=== PATIENT | male | born 1990 | race Caucasian/White ===

== ENCOUNTER 2022-05-27 23:39 | Emergency (ER) | payer MEDICAID ==
[~2022-05-27] VITALS: Ht 167.6 cm; Wt 73.0 kg
[2022-05-28 00:04] VITALS: BP 132/70
[2022-05-28 00:29] LABS: BASOPHILS % 0.6 % (0.0-2.0); EOSINOPHILS % 1.3 % (0.0-5.0); HEMATOCRIT. 46.2 % (42.0-52.0); HEMOGLOBIN. 15.5 g/dL (14.0-18.0); LYMPHOCYTES % 42.3 % (20.0-50.0); MEAN CORPUSCULAR HEMOGLOBIN 29.5 pg (28.0-32.0); MEAN CORPUSCULAR VOLUME 87.7 fL (80.0-94.0); MEAN PLATELET VOLUME 7.6 fl (7.4-10.4); MONOCYTES % 9.8 % (2.0-8.0); PLATELET 424 x1000/uL (130-400); RED BLOOD CELL COUNT 5.26 mill/uL (4.7-6.1); RED CELL DISTRIBUTION WIDTH 13.2 % (11.6-14.6)
[2022-05-28 00:34] LABS: CHLORIDE 106 mEq/L (98-107)
[2022-05-28] MEDS ORDERED: ONDANSETRON HCL 4MG/2ML INJ IV ONE (03:00)
[2022-05-28] MEDS ORDERED: SODIUM CHLORIDE 0.9% 1,000 ML IV ONE (03:00)
[2022-05-28] MEDS ORDERED: PANTOPRAZOLE SODIUM 40 MG/VIAL IV ONE (03:00)
[2022-05-28 03:12] LABS: CLARITY URINE CLEAR (CLEAR); COLOR URINE YELLOW (YELLOW); KETONES URINE 1+ (NEGATIVE); LEUKOCYTE ESTERASE URINE NEGATIVE (NEGATIVE); NITRITE URINE NEGATIVE (NEGATIVE); OCCULT BLOOD URINE NEGATIVE (NEGATIVE); PH URINE 5.5 (4.5-8.0); PROTEIN URINE NEGATIVE (NEGATIVE); SPECIFIC GRAVITY URINE 1.017 (1.005-1.030)
[2022-05-28] MEDS ORDERED: PANT20TA17 MT (04:31)
== END 2022-05-28 04:51 | disposition home or self-care (01) ==
LOC: ER 23:56
DX: R11.2 Nausea with vomiting, unspecified (principal); J45.909 Unspecified asthma, uncomplicated
CPT/HCPCS: 36415; 71045; 80053; 81003; 83690; 85025; 85610; 85730; 86850; 86900; 86901; 99284; C9113; J2405; Z7610

== ENCOUNTER 2022-07-09 19:53 | Emergency (ER) | payer MEDICAID ==
[~2022-07-09] VITALS: Ht 162.6 cm; Wt 75.0 kg
[~2022-07-09 19:53] MED LIST: FOLI-43 MT; PANT20TA17 MT; THIA50TA12 MT
[2022-07-09] MEDS ORDERED: ONDANSETRON HCL 4MG/2ML INJ IV ONE (20:15)
[2022-07-09] MEDS ORDERED: SODIUM CHLORIDE 0.9% 1,000 ML IV ONE (20:15)
[2022-07-09] MEDS ORDERED: ONDANSETRON HCL 4MG/2ML INJ IV NR (20:15)
[2022-07-09] MEDS ORDERED: VISCOUS LIDOCAINE 2% 15 ML UDC MM NR (20:30)
[2022-07-09] MEDS ORDERED: VISCOUS LIDOCAINE 2% 15 ML UDC MM ONE (20:30)
[2022-07-09 20:35] LABS: BASOPHILS % 1.3 % (0.0-2.0); EOSINOPHILS % 1.4 % (0.0-5.0); HEMATOCRIT. 45.6 % (42.0-52.0); HEMOGLOBIN. 15.3 g/dL (14.0-18.0); LYMPHOCYTES % 41.4 % (20.0-50.0); MEAN CORPUSCULAR HEMOGLOBIN 29.5 pg (28.0-32.0); MEAN PLATELET VOLUME 7.6 fl (7.4-10.4); MONOCYTES % 9.7 % (2.0-8.0); NEUTROPHILS % 46.2 % (40.0-76.0); PLATELET 300 x1000/uL (130-400); RED BLOOD CELL COUNT 5.18 mill/uL (4.7-6.1); RED CELL DISTRIBUTION WIDTH 13.5 % (11.6-14.6)
[2022-07-09 20:40] LABS: CHLORIDE 104 mEq/L (98-107)
[2022-07-09 20:43] LABS: PROTHROMBIN TIME 11.1 sec (9.6-11.0)
[2022-07-09 21:22] LABS: CLARITY URINE CLEAR (CLEAR); COLOR URINE YELLOW (YELLOW); KETONES URINE NEGATIVE (NEGATIVE); LEUKOCYTE ESTERASE URINE NEGATIVE (NEGATIVE); NITRITE URINE NEGATIVE (NEGATIVE); OCCULT BLOOD URINE NEGATIVE (NEGATIVE); PROTEIN URINE NEGATIVE (NEGATIVE); SPECIFIC GRAVITY URINE 1.003 (1.005-1.030); UROBILINOGEN URINE 0.2 E.U./dL (0.2-1.0)
[2022-07-09 21:36] LABS: ETHANOL BLOOD 310 mg/dL
[2022-07-09 21:40] LABS: *AMPHETAMINES SCREEN URINE NEGATIVE (NEGATIVE); *BARBITURATES SCREEN URINE NEGATIVE (NEGATIVE); *BENZODIAZEPINES SCREEN URINE NEGATIVE (NEGATIVE); *COCAINE SCREEN URINE NEGATIVE (NEGATIVE); CANNABINOID URINE SCREEN PRESUMTIVE POSITIVE (NEGATIVE); METHADONE URINE SCREEN NEGATIVE (NEGATIVE); OPIATES URINE SCREEN NEGATIVE (NEGATIVE); PHENCYCLIDINE URINE SCREEN NEGATIVE (NEGATIVE)
[2022-07-10] MEDS ORDERED: ONDA4TAB50 MT (00:28)
[2022-07-10] MEDS ORDERED: MAG355OR21 MT (00:28)
[2022-07-10] MEDS ORDERED: IBUP-2029 MT (00:28)
[2022-07-10 00:30] VITALS: BP 128/72
[2022-07-10] MEDS ORDERED: L25 GT (16:39)
[2022-07-10] MEDS ORDERED: FAMO40TA70 MT (16:39)
== END 2022-07-10 00:41 | disposition home or self-care (01) ==
LOC: ER 20:08
DX: F10.129 Alcohol abuse with intoxication, unspecified (principal); N13.4 Hydroureter; R10.13 Epigastric pain; R11.2 Nausea with vomiting, unspecified; R19.7 Diarrhea, unspecified; J45.909 Unspecified asthma, uncomplicated; Z91.013 Allergy to seafood; Z79.899 Other long term (current) drug therapy; Y90.8 Blood alcohol level of 240 mg/100 ml or more
CPT/HCPCS: 36415; 74176; 76705; 80053; 80305; 80320; 81003; 83605; 83690; 85025; 85610; 86850; 86900; 86901; 96361; 96374; 99285; J2405; J7030; Z7610; G0480

== ENCOUNTER 2022-07-10 12:23 | Emergency (ER) | payer MEDICAID ==
[~2022-07-10] VITALS: Ht 165.1 cm; Wt 68.0 kg
[~2022-07-10 12:23] MED LIST changes: +IBUP-2029 MT; +MAG355OR21 MT; +ONDA4TAB50 MT
[2022-07-10] MEDS ORDERED: PANTOPRAZOLE SODIUM 40 MG/VIAL IV STA (12:55)
[2022-07-10] MEDS ORDERED: ONDANSETRON HCL 4MG/2ML INJ IV ONE (13:00)
[2022-07-10 13:45] LABS: BASOPHILS % 0.4 % (0.0-2.0); EOSINOPHILS % 0.5 % (0.0-5.0); HEMATOCRIT. 42.5 % (42.0-52.0); HEMOGLOBIN. 14.3 g/dL (14.0-18.0); LYMPHOCYTES % 19.1 % (20.0-50.0); MEAN CORPUSCULAR HEMOGLOBIN 29.6 pg (28.0-32.0); MEAN CORPUSCULAR VOLUME 88.2 fL (80.0-94.0); MEAN PLATELET VOLUME 7.7 fl (7.4-10.4); MONOCYTES % 11.6 % (2.0-8.0); NEUTROPHILS % 68.4 % (40.0-76.0); PLATELET 264 x1000/uL (130-400); RED BLOOD CELL COUNT 4.82 mill/uL (4.7-6.1); RED CELL DISTRIBUTION WIDTH 13.5 % (11.6-14.6)
[2022-07-10 13:52] LABS: CHLORIDE 104 mEq/L (98-107)
[2022-07-10 14:00] LABS: ETHANOL BLOOD 39 mg/dL
[2022-07-10 15:32] LABS: CLARITY URINE CLEAR (CLEAR); COLOR URINE YELLOW (YELLOW); KETONES URINE NEGATIVE (NEGATIVE); LEUKOCYTE ESTERASE URINE NEGATIVE (NEGATIVE); NITRITE URINE NEGATIVE (NEGATIVE); OCCULT BLOOD URINE NEGATIVE (NEGATIVE); PROTEIN URINE NEGATIVE (NEGATIVE); SPECIFIC GRAVITY URINE 1.011 (1.005-1.030); UROBILINOGEN URINE 0.2 E.U./dL (0.2-1.0)
[2022-07-10 15:45] LABS: *AMPHETAMINES SCREEN URINE NEGATIVE (NEGATIVE); *BARBITURATES SCREEN URINE NEGATIVE (NEGATIVE); *BENZODIAZEPINES SCREEN URINE NEGATIVE (NEGATIVE); *COCAINE SCREEN URINE NEGATIVE (NEGATIVE); CANNABINOID URINE SCREEN PRESUMTIVE POSITIVE (NEGATIVE); METHADONE URINE SCREEN NEGATIVE (NEGATIVE); OPIATES URINE SCREEN NEGATIVE (NEGATIVE); PHENCYCLIDINE URINE SCREEN NEGATIVE (NEGATIVE)
[2022-07-10 16:14] LABS: HEMATOCRIT 42.4 % (42.0-52.0); HEMOGLOBIN 14.1 g/dL (14.0-18.0); MEAN CORPUSCULAR HEMOGLOBIN 29.3 pg (28.0-32.0); MEAN CORPUSCULAR VOLUME 88.1 fL (80.0-94.0); PLATELET 271 x1000/uL (130-400); RED BLOOD CELL COUNT 4.82 mill/uL (4.7-6.1)
[2022-07-10] MEDS ORDERED: FAMO40TA70 MT (16:39)
[2022-07-10] MEDS ORDERED: L25 GT (16:39)
[2022-07-10 16:59] VITALS: BP 139/68
== END 2022-07-10 17:40 | disposition home or self-care (01) ==
LOC: ER 13:15
DX: F10.10 Alcohol abuse, uncomplicated (principal); K29.20 Alcoholic gastritis without bleeding; Y90.1 Blood alcohol level of 20-39 mg/100 ml; J45.909 Unspecified asthma, uncomplicated
CPT/HCPCS: 36415; 80053; 80305; 80320; 81003; 82270; 83690; 85025; 85027; 86850; 86900; 86901; 93005; 96374; 96375; 99284; C9113; J2405; Z7610; G0480

== ENCOUNTER 2022-07-20 11:03 | Emergency (ER) | payer MEDICAID ==
[~2022-07-20] VITALS: Ht 162.6 cm; Wt 73.0 kg
[~2022-07-20 11:03] MED LIST changes: +FAMO40TA70 MT; +L25 GT
[2022-07-20] MEDS ORDERED: IBUPROFEN 600MG TABLET PO ONE (12:30)
[2022-07-20] MEDS ORDERED: ALBUTEROL (0.083%) 2.5MG/3ML NEB HHN ONE (12:30)
[2022-07-20] MEDS ORDERED: GUAIFENESIN 600MG ER TABLET PO ONE (12:30)
[2022-07-20] MEDS ORDERED: ALBU6.7H3 INH (13:10)
[2022-07-20] MEDS ORDERED: GUAI600T26 MT (13:10)
[2022-07-20] MEDS ORDERED: IBUP-2029 MT (13:10)
[2022-07-20 13:39] VITALS: BP 136/96
== END 2022-07-20 14:45 | disposition home or self-care (01) ==
LOC: ER 11:03
DX: J42 Unspecified chronic bronchitis (principal); K70.30 Alcoholic cirrhosis of liver without ascites; J45.909 Unspecified asthma, uncomplicated; Z00.00 Encounter for general adult medical examination without abnormal findings; Z91.013 Allergy to seafood; Z79.899 Other long term (current) drug therapy
CPT/HCPCS: 71045; 94640; 99283; Z7610

== ENCOUNTER 2022-08-17 10:43 | Emergency (ER) | payer MEDICAID ==
[~2022-08-17] VITALS: Ht 165.1 cm; Wt 72.0 kg
[~2022-08-17 10:43] MED LIST changes: +ALBU6.7H3 INH; +GUAI600T26 MT
[2022-08-17 10:46] VITALS: O2SAT 98
[2022-08-17] MEDS ORDERED: ONDANSETRON HCL 4MG/2ML INJ IV STA (10:53)
[2022-08-17] MEDS ORDERED: MAGNESIUM/ALUMINUM HYDROXIDE/SIMETHICONE 30ML UDC PO STA (10:53)
[2022-08-17] MEDS ORDERED: SODIUM CHLORIDE 0.9% 1,000 ML IV ONE (11:00)
[2022-08-17 11:25] LABS: BASOPHILS % 0.6 % (0.0-2.0); EOSINOPHILS % 0.3 % (0.0-5.0); HEMATOCRIT. 45.2 % (42.0-52.0); HEMOGLOBIN. 15.3 g/dL (14.0-18.0); LYMPHOCYTES % 23.9 % (20.0-50.0); MEAN CORPUSCULAR HEMOGLOBIN 29.6 pg (28.0-32.0); MEAN CORPUSCULAR VOLUME 87.6 fL (80.0-94.0); MEAN PLATELET VOLUME 7.9 fl (7.4-10.4); MONOCYTES % 10.9 % (2.0-8.0); NEUTROPHILS % 64.3 % (40.0-76.0); PLATELET 363 x1000/uL (130-400); RED BLOOD CELL COUNT 5.16 mill/uL (4.7-6.1); RED CELL DISTRIBUTION WIDTH 13.8 % (11.6-14.6)
[2022-08-17 11:35] LABS: CHLORIDE 103 mEq/L (98-107)
[2022-08-17 11:39] LABS: PROTHROMBIN TIME 11.1 sec (9.6-11.0)
[2022-08-17 11:42] LABS: ETHANOL BLOOD 35 mg/dL (-10)
[2022-08-17 12:10] VITALS: TEMP 98.1
[2022-08-17] MEDS ORDERED: OMEP40CA20 MT (13:05)
[2022-08-17 14:20] VITALS: BP 128/81; PULSE 78; RESP 14
== END 2022-08-17 14:20 | disposition home or self-care (01) ==
LOC: ER 11:04
DX: R10.33 Periumbilical pain (principal); R11.2 Nausea with vomiting, unspecified; F10.229 Alcohol dependence with intoxication, unspecified; J45.909 Unspecified asthma, uncomplicated; Y90.0 Blood alcohol level of less than 20 mg/100 ml
CPT/HCPCS: 80053; 80320; 83690; 85025; 85610; 36415; 74176; 93005; 96361; 96374; 99285; J2405; J7030; G0480

== ENCOUNTER 2022-08-24 20:33 | Emergency (ER) | payer MEDICAID ==
[~2022-08-24] VITALS: Ht 165.1 cm; Wt 61.0 kg
[~2022-08-24 20:33] MED LIST changes: +OMEP40CA20 MT
[2022-08-24 20:41] VITALS: O2SAT 98
[2022-08-24 23:42] LABS: BASOPHILS % 0.5 % (0.0-2.0); EOSINOPHILS % 1.3 % (0.0-5.0); HEMATOCRIT. 45.5 % (42.0-52.0); HEMOGLOBIN. 15.2 g/dL (14.0-18.0); MEAN CORPUSCULAR HEMOGLOBIN 29.7 pg (28.0-32.0); MEAN PLATELET VOLUME 7.8 fl (7.4-10.4); MONOCYTES % 10.5 % (2.0-8.0); NEUTROPHILS % 52.7 % (40.0-76.0); PLATELET 292 x1000/uL (130-400); RED BLOOD CELL COUNT 5.12 mill/uL (4.7-6.1); RED CELL DISTRIBUTION WIDTH 14.1 % (11.6-14.6)
[2022-08-24 23:50] LABS: CHLORIDE 108 mEq/L (98-107)
[2022-08-25] MEDS ORDERED: SODIUM CHLORIDE 0.9% 1,000 ML IV ONE (00:30)
[2022-08-25] MEDS ORDERED: MAGNESIUM/ALUMINUM HYDROXIDE/SIMETHICONE 30ML UDC PO NR (00:30)
[2022-08-25] MEDS ORDERED: ONDANSETRON HCL 4MG/2ML INJ IV NR (00:30)
[2022-08-25] MEDS ORDERED: FAMOTIDINE 20MG/2ML VIAL IV NR (00:30)
[2022-08-25] MEDS ORDERED: PANT20TA17 MT (02:25)
[2022-08-25 02:44] VITALS: BP 136/82; PULSE 78; RESP 16; TEMP 98.3
[2022-08-28] MEDS ORDERED: VITAMIN D (13:44)
== END 2022-08-25 02:44 | disposition home or self-care (01) ==
LOC: ER 20:33
DX: R10.13 Epigastric pain (principal); R11.2 Nausea with vomiting, unspecified; F10.229 Alcohol dependence with intoxication, unspecified; J45.909 Unspecified asthma, uncomplicated; Y90.0 Blood alcohol level of less than 20 mg/100 ml
CPT/HCPCS: 80053; 83605; 83690; 85025; 36415; 99285; 76705; 96361; 96374; 96375; J3490; J2405; Z7610

== ENCOUNTER 2022-09-01 13:20 | Emergency (ER) | payer MEDICAID ==
[~2022-09-01] VITALS: Ht 165.1 cm; Wt 73.0 kg
[~2022-09-01 13:20] MED LIST changes: +VITAMIN D
[2022-09-01 13:30] VITALS: BP 121/78; RESP 16; TEMP 98.7; O2SAT 100
[2022-09-01 13:34] VITALS: PULSE 82
[2022-09-01 14:02] LABS: BASOPHILS % 0.9 % (0.0-2.0); EOSINOPHILS % 2.5 % (0.0-5.0); HEMATOCRIT. 44.4 % (42.0-52.0); HEMOGLOBIN. 14.8 g/dL (14.0-18.0); LYMPHOCYTES % 35.5 % (20.0-50.0); MEAN CORPUSCULAR HEMOGLOBIN 29.4 pg (28.0-32.0); MEAN CORPUSCULAR VOLUME 88.1 fL (80.0-94.0); MEAN PLATELET VOLUME 7.6 fl (7.4-10.4); NEUTROPHILS % 49.1 % (40.0-76.0); PLATELET 241 x1000/uL (130-400); RED BLOOD CELL COUNT 5.04 mill/uL (4.7-6.1); RED CELL DISTRIBUTION WIDTH 13.6 % (11.6-14.6)
[2022-09-01 14:09] LABS: CHLORIDE 104 mEq/L (98-107)
[2022-09-01] MEDS ORDERED: SODIUM CHLORIDE 0.9% 1,000 ML IV SCH (19:00)
[2022-09-01] MEDS ORDERED: NALOXONE HCL 0.4MG/ML VIAL IV PRN (19:00)
[2022-09-01] MEDS ORDERED: MORPHINE SULFATE 2 MG/ML CPJ (NOT FOR IM USE) IV PRN (19:00)
[2022-09-01] MEDS ORDERED: SUCRALFATE 1 G/10 ML UDC PO SCH (21:00)
[2022-09-01] MEDS ORDERED: CHLORDIAZEPOXIDE 25MG CAPSULE PO SCH (22:00)
[2022-09-02] MEDS ORDERED: PANTOPRAZOLE SODIUM 40 MG/VIAL IV SCH (09:00)
== END 2022-09-01 18:24 | disposition left against medical advice (07) ==
LOC: ER 13:20
DX: Z53.21 Procedure and treatment not carried out due to patient leaving prior to being seen by health care provider (principal); I49.9 Cardiac arrhythmia, unspecified
CPT/HCPCS: 36415; 76700; 80053; 84484; 85025; 93005; 99281

== ENCOUNTER 2022-09-29 18:02 | Emergency (ER) | payer MEDICAID ==
[~2022-09-29] VITALS: Ht 167.6 cm; Wt 72.0 kg
[~2022-09-29 18:02] MED LIST changes: -IBUP-2029 MT; -L25 GT; +MAG-55 MT
[2022-09-29 18:26] VITALS: O2SAT 100
[2022-09-29 20:54] LABS: BASOPHILS % 0.5 % (0.0-2.0); EOSINOPHILS % 1.1 % (0.0-5.0); HEMATOCRIT. 44.8 % (42.0-52.0); HEMOGLOBIN. 14.9 g/dL (14.0-18.0); LYMPHOCYTES % 19.7 % (20.0-50.0); MEAN CORPUSCULAR HEMOGLOBIN 29.3 pg (28.0-32.0); MEAN CORPUSCULAR HGB CONC 33.2 g/dL (31.0-37.0); MEAN CORPUSCULAR VOLUME 88.4 fL (80.0-94.0); MEAN PLATELET VOLUME 7.7 fl (7.4-10.4); MONOCYTES % 10.7 % (2.0-8.0); PLATELET 260 x1000/uL (130-400); RED BLOOD CELL COUNT 5.07 mill/uL (4.7-6.1); RED CELL DISTRIBUTION WIDTH 13.4 % (11.6-14.6); WHITE BLOOD COUNT 5.9 x1000/uL (4.5-11.0)
[2022-09-29 20:58] LABS: CHLORIDE 102 mEq/L (98-107); INDEX HEMOLYSI 2 (1-3); INDEX ICTERIC 1 (1-4); INDEX LIPEMIC 1 (1-3); POTASSIUM 3.9 mEq/L (3.5-5.1); SODIUM 137 mEq/L (136-145)
[2022-09-29 21:05] LABS: ALANINE AMINOTRANSFERASE 131 IU/L (13-61); ALBUMIN 4.1 g/dL (3.4-5.0); ASPARTATE AMINOTRANSFERASE 151 IU/L (15-37); BILIRUBIN TOTAL 0.9 mg/dL (0.1-1.0); CARBON DIOXIDE 23 mEq/L (21-32); CREATININE 0.8 mg/dL (0.6-1.3); GLUCOSE 135 mg/dL (70-105); PROTEIN TOTAL 8.8 g/dL (6.0-8.3); UREA NITROGEN BLOOD 5 mg/dL (7-21)
[2022-09-30] MEDS ORDERED: ONDA4TAB50 MT (00:44)
[2022-09-30 02:00] VITALS: BP 139/86; PULSE 69; RESP 18; TEMP 98
== END 2022-09-30 02:05 | disposition home or self-care (01) ==
LOC: ER 18:02
DX: K52.9 Noninfective gastroenteritis and colitis, unspecified (principal); J45.909 Unspecified asthma, uncomplicated; F10.229 Alcohol dependence with intoxication, unspecified; Y90.0 Blood alcohol level of less than 20 mg/100 ml
CPT/HCPCS: 36415; 76700; 80053; 85025; 99284

== ENCOUNTER 2022-10-10 17:36 | Emergency (ER) | payer MEDICAID ==
[~2022-10-10] VITALS: Ht 167.6 cm; Wt 68.0 kg
[2022-10-10 17:44] VITALS: BP 127/83; RESP 20; TEMP 98.8; O2SAT 98
[2022-10-10 17:47] VITALS: PULSE 67
[2022-10-10 18:36] LABS: BASOPHILS % 1.2 % (0.0-2.0); EOSINOPHILS % 2.4 % (0.0-5.0); HEMATOCRIT. 46.1 % (42.0-52.0); HEMOGLOBIN. 15.2 g/dL (14.0-18.0); LYMPHOCYTES % 37.3 % (20.0-50.0); MEAN CORPUSCULAR HEMOGLOBIN 29.1 pg (28.0-32.0); MEAN CORPUSCULAR VOLUME 88.2 fL (80.0-94.0); MEAN PLATELET VOLUME 7.6 fl (7.4-10.4); MONOCYTES % 11.2 % (2.0-8.0); NEUTROPHILS % 47.9 % (40.0-76.0); PLATELET 258 x1000/uL (130-400); RED BLOOD CELL COUNT 5.23 mill/uL (4.7-6.1); RED CELL DISTRIBUTION WIDTH 13.3 % (11.6-14.6); WHITE BLOOD COUNT 5.6 x1000/uL (4.5-11.0)
[2022-10-10 18:45] LABS: CHLORIDE 102 mEq/L (98-107); INDEX HEMOLYSI 1 (1-3); INDEX ICTERIC 1 (1-4); INDEX LIPEMIC 1 (1-3); POTASSIUM 3.8 mEq/L (3.5-5.1); SODIUM 137 mEq/L (136-145)
[2022-10-10 18:56] LABS: ALANINE AMINOTRANSFERASE 187 IU/L (13-61); ALBUMIN 4.3 g/dL (3.4-5.0); ASPARTATE AMINOTRANSFERASE 198 IU/L (15-37); BILIRUBIN TOTAL 0.7 mg/dL (0.1-1.0); CALCIUM 9.5 mg/dL (8.5-10.1); CARBON DIOXIDE 26 mEq/L (21-32); CREATININE 0.8 mg/dL (0.6-1.3); ETHANOL BLOOD 328 mg/dL (-10); GLUCOSE 145 mg/dL (70-105); PROTEIN TOTAL 8.9 g/dL (6.0-8.3); UREA NITROGEN BLOOD 5 mg/dL (7-21)
[2022-10-10 19:38] LABS: CLARITY URINE CLEAR (CLEAR); COLOR URINE YELLOW (YELLOW); GLUCOSE URINE NEGATIVE (NEGATIVE); KETONES URINE NEGATIVE (NEGATIVE); LEUKOCYTE ESTERASE URINE NEGATIVE (NEGATIVE); NITRITE URINE NEGATIVE (NEGATIVE); OCCULT BLOOD URINE NEGATIVE (NEGATIVE); PH URINE 5.5 (4.5-8.0); PROTEIN URINE NEGATIVE (NEGATIVE); SPECIFIC GRAVITY URINE 1.002 (1.005-1.030); UROBILINOGEN URINE 0.2 E.U./dL (0.2-1.0)
[2022-10-10 19:51] LABS: *AMPHETAMINES SCREEN URINE NEGATIVE (NEGATIVE); *BARBITURATES SCREEN URINE NEGATIVE (NEGATIVE); *BENZODIAZEPINES SCREEN URINE NEGATIVE (NEGATIVE); *COCAINE SCREEN URINE NEGATIVE (NEGATIVE); CANNABINOID URINE SCREEN PRESUMTIVE POSITIVE (NEGATIVE); ECSTASY MDMA SCREEN URINE NEGATIVE (NEGATIVE); METHADONE URINE SCREEN NEGATIVE (NEGATIVE); OPIATES URINE SCREEN NEGATIVE (NEGATIVE); PHENCYCLIDINE URINE SCREEN NEGATIVE (NEGATIVE)
[2022-10-10] MEDS ORDERED: SODIUM CHLORIDE 0.9% 1,000 ML IV ONE (22:00)
[2022-10-10] MEDS ORDERED: THIAMINE HCL 100 MG/1 ML 2ML VIAL IV SCH (22:00)
[2022-10-10] MEDS ORDERED: CHLORDIAZEPOXIDE 25MG CAPSULE PO ONE (22:00)
== END 2022-10-10 22:50 | disposition left against medical advice (07) ==
LOC: ER 17:36 → CANBEDREQ 10-11 04:51
DX: F10.939 Alcohol use, unspecified with withdrawal, unspecified (principal); J45.909 Unspecified asthma, uncomplicated; K70.30 Alcoholic cirrhosis of liver without ascites; Z79.899 Other long term (current) drug therapy; Z91.013 Allergy to seafood; Y90.9 Presence of alcohol in blood, level not specified
CPT/HCPCS: 80053; 80305; 81003; 80320; 83690; 85025; 36415; 99283; J7030; J3411; G0480

== ENCOUNTER 2022-10-17 19:52 | Emergency (ER) | payer MEDICAID ==
[~2022-10-17] VITALS: Ht 165.1 cm; Wt 61.0 kg
[2022-10-17 19:57] VITALS: O2SAT 95
[2022-10-17 20:17] VITALS: BP 113/71; PULSE 88; RESP 16; TEMP 97.9
[2022-10-17] MEDS ORDERED: HYDR453.3 TP (20:45)
[2022-10-17] MEDS ORDERED: PHEN51CR24 TP (20:45)
== END 2022-10-17 21:06 | disposition home or self-care (01) ==
LOC: ER 19:52
DX: K64.4 Residual hemorrhoidal skin tags (principal); Z91.013 Allergy to seafood; Z79.899 Other long term (current) drug therapy
CPT/HCPCS: 99283

== ENCOUNTER 2022-10-29 15:38 | Emergency (ER) | payer MEDICAID ==
[~2022-10-29] VITALS: Ht 167.6 cm; Wt 72.5 kg
[~2022-10-29 15:38] MED LIST changes: +HYDR453.3 TP; +PHEN51CR24 TP
[2022-10-29 15:51] VITALS: BP 113/75; PULSE 109; RESP 16; TEMP 98.6; O2SAT 97
[2022-10-29] MEDS ORDERED: ONDANSETRON HCL 4MG/2ML INJ IV STA (16:17)
[2022-10-29] MEDS ORDERED: SODIUM CHLORIDE 0.9% 1,000 ML IV ONE (16:30)
[2022-10-29 16:34] LABS: HEMATOCRIT. 44.9 % (42.0-52.0); HEMOGLOBIN. 14.7 g/dL (14.0-18.0); MEAN CORPUSCULAR HGB CONC 32.6 g/dL (31.0-37.0); MEAN CORPUSCULAR VOLUME 88.7 fL (80.0-94.0); MEAN PLATELET VOLUME 8.2 fl (7.4-10.4); PLATELET 214 x1000/uL (130-400); RED BLOOD CELL COUNT 5.07 mill/uL (4.7-6.1); RED CELL DISTRIBUTION WIDTH 13.6 % (11.6-14.6)
[2022-10-29 16:40] LABS: CHLORIDE 107 mEq/L (98-107); INDEX HEMOLYSI 1 (1-3); INDEX ICTERIC 1 (1-4); INDEX LIPEMIC 1 (1-3); POTASSIUM 3.5 mEq/L (3.5-5.1); SODIUM 136 mEq/L (136-145)
[2022-10-29 16:46] LABS: DIFFERENTIAL COMMENT 1
[2022-10-29 16:51] LABS: ALANINE AMINOTRANSFERASE 390 IU/L (13-61); ASPARTATE AMINOTRANSFERASE 250 IU/L (15-37); BILIRUBIN TOTAL 0.9 mg/dL (0.1-1.0); CALCIUM 9.2 mg/dL (8.5-10.1); CARBON DIOXIDE 20 mEq/L (21-32); CREATININE 0.7 mg/dL (0.6-1.3); ETHANOL BLOOD 96 mg/dL (-10); GLUCOSE 125 mg/dL (70-105); PROTEIN TOTAL 8.3 g/dL (6.0-8.3); UREA NITROGEN BLOOD 5 mg/dL (7-21)
[2022-10-29 17:03] LABS: TROPONIN I HIGH SENSITIVITY < 4 ng/L (<78)
[2022-10-29 17:48] LABS: PLATELET ESTIMATE NORMAL
[2022-10-29] MEDS ORDERED: FAMOTIDINE 20MG/2ML VIAL IV ONE (18:00)
[2022-10-29] MEDS ORDERED: CHLO5CAP3 MT (21:56)
== END 2022-10-29 18:45 | disposition left against medical advice (07) ==
LOC: ER 15:38
DX: F10.10 Alcohol abuse, uncomplicated (principal); R10.9 Unspecified abdominal pain; R55 Syncope and collapse; Y90.4 Blood alcohol level of 80-99 mg/100 ml
CPT/HCPCS: 80053; 80320; 83690; 85025; 84484; 36415; 71045; 70450; 93005; 99285; J7030; G0480

== ENCOUNTER 2022-10-29 20:29 | Emergency (ER) | payer MEDICAID ==
[~2022-10-29] VITALS: Ht 167.6 cm; Wt 76.2 kg
[2022-10-29 20:54] VITALS: BP 123/73; PULSE 104; RESP 16; TEMP 98.8; O2SAT 98
[2022-10-29] MEDS ORDERED: CHLO5CAP3 MT (21:56)
[2022-12-10] MEDS ORDERED: SUCR1TAB MT (16:19)
[2022-12-10] MEDS ORDERED: PROT40 MT (16:19)
== END 2022-10-29 22:05 | disposition left against medical advice (07) ==
LOC: ER 20:29
DX: F10.229 Alcohol dependence with intoxication, unspecified (principal); J45.909 Unspecified asthma, uncomplicated; Z79.899 Other long term (current) drug therapy; Y90.0 Blood alcohol level of less than 20 mg/100 ml
CPT/HCPCS: 99281

== ENCOUNTER 2023-03-01 21:53 | Emergency (ER) | payer MEDICAID ==
[~2023-03-01] VITALS: Ht 167.6 cm; Wt 73.0 kg
[~2023-03-01 21:53] MED LIST changes: -MAG-55 MT; -OMEP40CA20 MT; -PANT20TA17 MT; +PROT40 MT; +SUCR1TAB MT; -VITAMIN D
[2023-03-01 22:11] VITALS: TEMP 97.6; O2SAT 96
[2023-03-01 22:13] VITALS: BP 105/77; PULSE 70; RESP 20
== END 2023-03-02 02:15 | disposition left against medical advice (07) ==
LOC: ER 21:53
DX: R68.89 Other general symptoms and signs (principal); Z53.21 Procedure and treatment not carried out due to patient leaving prior to being seen by health care provider
CPT/HCPCS: 99281

== ENCOUNTER 2023-03-04 16:27 | Emergency (ER) | payer MEDICAID ==
[~2023-03-04] VITALS: Ht 167.6 cm; Wt 78.0 kg
[2023-03-04 16:39] VITALS: BP 111/64; PULSE 88; RESP 16; TEMP 97.9; O2SAT 97
[2023-03-04 17:02] LABS: EOSINOPHILS % 3.6 % (0.0-5.0); HEMATOCRIT. 45.2 % (42.0-52.0); HEMOGLOBIN. 14.5 g/dL (14.0-18.0); LYMPHOCYTES % 37.9 % (20.0-50.0); MEAN CORPUSCULAR HEMOGLOBIN 28.9 pg (28.0-32.0); MEAN CORPUSCULAR HGB CONC 32.1 g/dL (31.0-37.0); MEAN CORPUSCULAR VOLUME 90.1 fL (80.0-94.0); MEAN PLATELET VOLUME 8.7 fl (7.4-10.4); NEUTROPHILS % 44.5 % (40.0-76.0); PLATELET 220 x1000/uL (130-400); RED BLOOD CELL COUNT 5.02 mill/uL (4.7-6.1); WHITE BLOOD COUNT 4.4 x1000/uL (4.5-11.0)
[2023-03-04 17:19] LABS: ALANINE AMINOTRANSFERASE 126 IU/L (10-49); ALBUMIN 4.5 g/dL (3.2-4.8); ASPARTATE AMINOTRANSFERASE 105 IU/L (<34); BILIRUBIN TOTAL 1.8 mg/dL (0.1-1.0); CALCIUM 9.6 mg/dL (8.7-10.4); CARBON DIOXIDE 21 mEq/L (21-32); CHLORIDE 107 mEq/L (98-107); CREATININE 0.8 mg/dL (0.6-1.3); GLUCOSE 95 mg/dL (70-105); POTASSIUM 3.9 mEq/L (3.5-5.1); PROTEIN TOTAL 8.1 g/dL (6.0-8.3); SODIUM 141 mEq/L (136-145)
[2023-03-04 17:20] LABS: UREA NITROGEN BLOOD < 5 mg/dL (9-23)
== END 2023-03-04 19:26 | disposition left against medical advice (07) ==
LOC: ER 16:27
DX: F10.129 Alcohol abuse with intoxication, unspecified (principal); Z53.21 Procedure and treatment not carried out due to patient leaving prior to being seen by health care provider; Y90.9 Presence of alcohol in blood, level not specified
CPT/HCPCS: 36415; 80053; 85025; 99281

== ENCOUNTER 2023-03-08 13:17 | Emergency (ER) | payer MEDICAID ==
[~2023-03-08] VITALS: Ht 172.7 cm; Wt 72.0 kg
[2023-03-08 13:30] VITALS: BP 110/62; PULSE 66; RESP 20; TEMP 98.4; O2SAT 98
[2023-03-08] MEDS ORDERED: CHLORDIAZEPOXIDE 25MG CAPSULE PO ONE (14:45)
== END 2023-03-08 15:02 | disposition home or self-care (01) ==
LOC: ER 13:17
DX: F10.239 Alcohol dependence with withdrawal, unspecified (principal); F10.229 Alcohol dependence with intoxication, unspecified; J45.909 Unspecified asthma, uncomplicated; Z91.013 Allergy to seafood; Z79.899 Other long term (current) drug therapy; Y90.9 Presence of alcohol in blood, level not specified
CPT/HCPCS: 99283

== ENCOUNTER 2023-03-08 15:29 | Emergency (ER) | payer OTHER ==
[~2023-03-08] VITALS: Ht 170.2 cm; Wt 66.0 kg
[2023-03-08 15:36] VITALS: BP 108/60; PULSE 80; RESP 16; TEMP 98.2; O2SAT 95
== END 2023-03-08 16:00 | disposition home or self-care (01) ==
LOC: ER 15:29
DX: F10.239 Alcohol dependence with withdrawal, unspecified (principal); F10.229 Alcohol dependence with intoxication, unspecified; J45.909 Unspecified asthma, uncomplicated; Z91.013 Allergy to seafood; Z79.899 Other long term (current) drug therapy; Y90.9 Presence of alcohol in blood, level not specified
CPT/HCPCS: 99283

== ENCOUNTER 2023-03-16 18:55 | Emergency (ER) | payer MEDICAID ==
[~2023-03-16] VITALS: Ht 167.6 cm; Wt 85.0 kg
[2023-03-16 18:59] VITALS: O2SAT 95
[2023-03-16 21:51] VITALS: BP 135/76; PULSE 85; RESP 17; TEMP 98.1
== END 2023-03-16 21:57 | disposition home or self-care (01) ==
LOC: ER 18:55
DX: F10.229 Alcohol dependence with intoxication, unspecified (principal); F41.9 Anxiety disorder, unspecified; J45.909 Unspecified asthma, uncomplicated; Y90.0 Blood alcohol level of less than 20 mg/100 ml
CPT/HCPCS: 99283

== ENCOUNTER 2024-02-02 19:22 | Emergency (ER) | payer OTHER ==
[~2024-02-02] VITALS: Ht 162.6 cm; Wt 73.0 kg
[~2024-02-02 19:22] MED LIST changes: +CHLO25CA11 MT; -FAMO40TA70 MT; -GUAI600T26 MT; -HYDR453.3 TP; -MAG355OR21 MT; -ONDA4TAB50 MT; -PHEN51CR24 TP
[2024-02-02 19:25] VITALS: BP 116/69; PULSE 103; RESP 16; TEMP 98.2; O2SAT 95
== END 2024-02-02 21:09 | disposition left against medical advice (07) ==
LOC: ER 19:22
DX: F10.129 Alcohol abuse with intoxication, unspecified (principal); Z53.21 Procedure and treatment not carried out due to patient leaving prior to being seen by health care provider; Y90.9 Presence of alcohol in blood, level not specified
CPT/HCPCS: 93005

== ENCOUNTER 2024-02-02 21:32 | Emergency (ER) | payer OTHER ==
[~2024-02-02] VITALS: Ht 172.7 cm; Wt 80.0 kg
[2024-02-02 21:36] VITALS: BP 160/80; PULSE 100; RESP 16; TEMP 98; O2SAT 100
== END 2024-02-02 22:00 | disposition left against medical advice (07) ==
LOC: ER 21:32
DX: F10.129 Alcohol abuse with intoxication, unspecified (principal); Z53.21 Procedure and treatment not carried out due to patient leaving prior to being seen by health care provider; Y90.9 Presence of alcohol in blood, level not specified